=== PATIENT | female | born 1990 | race Caucasian/White ===

== ENCOUNTER 2017-03-30 03:30 | Emergency (ER) | payer OTHER ==
[~2017-03-30] VITALS: Ht 170.1 cm; Wt 87.5 kg
[~2017-03-30 03:30] MED LIST: AMOXIL500 MG PO; BENADRYL 1%-0.11 CR1 TP; PRENTAL 1 PLUS1 TAB PO; ULTRAM50 MG PO; VIBRAMYCIN100 MG PO; ZOFRAN ODT4 MG SL; ZOVIRAX400 MG PO
== END 2017-03-30 04:52 | disposition home or self-care (01) ==
LOC: ED 03:30
DX: J34.2 Deviated nasal septum (principal); Z91.010 Allergy to peanuts; Z79.899 Other long term (current) drug therapy

== ENCOUNTER 2022-03-02 16:02 | Emergency (ER) | payer OTHER ==
[~2022-03-02] VITALS: Ht 170.1 cm; Wt 90.7 kg
[2022-03-02] MEDS ORDERED: HYDROCODONE-AC1 EAC1 PO (16:56)
[2022-03-02] MEDS ORDERED: Motrin,Rufen800 MG PO (17:12)
== END 2022-03-02 17:25 | disposition home or self-care (01) ==
LOC: ED 16:02
DX: K08.89 Other specified disorders of teeth and supporting structures (principal); Z79.899 Other long term (current) drug therapy

== ENCOUNTER → 2024-03-18 | Outpatient (CLI) | payer BC ==
[~2024-03-18] MED LIST changes: +HYDROCODONE-AC1 EAC1 PO; +Motrin,Rufen800 MG PO
== END | disposition home or self-care (01) ==
LOC: RAD 12:03
PROVIDERS: ATTEND Internal Medicine
DX: M19.072 Primary osteoarthritis, left ankle and foot (principal); M19.071 Primary osteoarthritis, right ankle and foot; M21.962 Unspecified acquired deformity of left lower leg; M21.961 Unspecified acquired deformity of right lower leg